=== PATIENT | female | born 2000 | race Caucasian/White ===

== ENCOUNTER 2022-05-05 08:09 | Day surgery (SDC) | payer OTHER, SELFPAY ==
--- NOTE | 2022-05-04 14:35 | P.CONAN_ITS ---
Documented by User: Janice Atwood NP 05/04/22 14:38 HPI - Anesthesia Eval Consult details Narrative: 22yo F for Bilateral medial Eye Muscle rectus Recession,Left Superior rectus recession PMFSH Past Medical History Medical History SNHL (sensorineural hearing loss) Strabismus Social History Social History Patient Tobacco Use Status: Never used Tobacco Use of substances other than those prescribed or required for medical reasons: No Are you DNR?: No Advance Directives: No Advance Directives Information Provided: Yes Meds Allergies Allergy/AdvReac Type Severity Reaction Status Date / Time No Known Allergies Allergy Verified 05/04/22 14:38 Home Medications Medication Instructions Recorded Confirmed Last Taken Type No Known Home Meds 04/30/22 04/30/22 Unknown History Exam Exam Date and Time: May 04, 2022 143 Assessment and Plan Assessment Anesthesia Assessment: Chart Reviewed Documented by User: Jorge De Leon MD 05/05/22 11:16 PMFSH Past Medical History Medical History SNHL (sensorineural hearing loss) Strabismus Family History Family history of problems with anesthesia: No Surgical History History of Problems with Anesthesia: No Social History Social History Patient Tobacco Use Status: Never used Tobacco Use of substances other than those prescribed or required for medical reasons: No Are you DNR?: No Advance Directives: No Advance Directives Information Provided: Yes Meds Allergies Allergy/AdvReac Type Severity Reaction Status Date / Time No Known Allergies Allergy Verified 05/04/22 14:38 Home Medications Medication Instructions Recorded Confirmed Last Taken Type No Known Home Meds 04/30/22 04/30/22 Unknown History Exam Airway Mallampati Class: II TM Dist: >3cm Neck ROM: Full Loose/Missing/Broken Teeth: No Heart: [id number] Lungs: cta b/l Assessment and Plan Assessment Anesthesia Assessment: Anesthesia Plan Discussed Final Anesthetic Review Family History of Problems with Anesthesia: No History of Problems with Anesthesia: No NPO: Yes ASA Class: II Final Preanesthetic Review: No Changes in Pt Med Stat, Meds/Allgs Chart Reviewed, Consent Obtained/Reviewed (with beverage specialist) and Anes Risks/Benef Reviewed Patient Risk: Intermediate Procedure Risk: Low Assessment/Block/Sedation in SS: Assess/Block/Sedation-SS Anesthetic Plan Anesthetic Plan: GA and Agree w/ Assess. and Plan Disposition: Standard PACU
[2022-05-05] VITALS (10 sets, daily range): BP systolic 105–118; BP diastolic 50–67; PULSE 90–109; RESP 16; TEMP 36.4–36.6; O2SAT 99–100; BMI 17.5
[2022-05-05 09:59] LABS: UPreg QC Valid YES; Urine Pregnancy NEGATIVE (NEGATIVE)
[2022-05-05] MEDS: Lactated Ringers 1,000 ML 100 ML IVCONT (10:59)
--- NOTE | 2022-05-05 12:27 | HO.OPHTHAL ---
Ophthalmology Operative Note Date of Service: 05/05/22 Narrative: Diagnoses 1 esotropia 2 left hypertropia. Procedures 1. Bilateral medial rectus recessions of 6 mm 2. Recession of left superior rectus [address] Dacosta anesthesia general complications none. The patient was brought to the operating room placed under general anesthesia. The patient's eyes were prepped and draped in the usual sterile ophthalmic fashion. A lid speculum was placed in the right eye and an incision made at bare sclera in the inferonasal fornix. The medial rectus muscle was hooked and secured with a double-armed Vicryl suture. The muscle was then disinserted from the globe and reattached to a position 6 mm behind the original insertion using a hang back technique. Conjunctiva was closed with interrupted Vicryl sutures. An identical procedure was then performed on the left eye. An incision was then made down to bare sclera in the superior temporal fornix of the left eye. The superior rectus muscle was hooked and secured with a double-armed Vicryl suture. The muscle was then disinserted the globe and reattached to a position 4 mm behind the original insertion using a hang back technique. Conjunctiva was closed with interrupted Vicryl sutures. The patient was then awoken from general anesthesia and discharged to postoperative recovery in good condition.
[2022-05-05] MEDS: oxyCODONE HCl Immed Release 5 MG TABLET PO (13:04)
[2022-05-05] MEDS: fentaNYL citrate/PF 100 MCG/2 ML VIAL 25 MCG IVPUSH (13:05)
== END 2022-05-05 14:15 | disposition home or self-care (01) ==
PROVIDERS: Nurse Practitioner; Visit Provider Ophthalmology
PROC: (CPT 67311; principal; 2022-05-05 10:00)
DX: H50.00 Unspecified esotropia (principal); H50.22 Vertical strabismus, left eye; H90.3 Sensorineural hearing loss, bilateral; E55.9 Vitamin D deficiency, unspecified; F80.9 Developmental disorder of speech and language, unspecified; Z97.4 Presence of external hearing-aid; Z86.19 Personal history of other infectious and parasitic diseases; R63.6 Underweight; Z68.1 Body mass index [BMI] 19.9 or less, adult
CPT/HCPCS: 67311; 67314; 81025; J1100; J2250; J2405; J3010